=== PATIENT | male | born 1990 | race Two or more races ===

== ENCOUNTER 2016-06-24 02:11 | Emergency (ER) | payer MEDICAID ==
[~2016-06-24] VITALS: Ht 188 cm; Wt 94.8 kg
[~2016-06-24 02:11] MED LIST: ALBU18
[2016-06-24] MEDS ORDERED: LIDOCAINE 1% HCL (LOCAL ANESTH.) INJ 20ML MDV ONE (02:59)
[2016-06-24] MEDS ORDERED: HYDROmorphone HCL 2 MG/ML VL ONE (03:09)
[2016-06-24] MEDS ORDERED: ONDANSETRON HCL 4 MG/2 ML VIAL ONE (03:10)
[2016-06-24] MEDS ORDERED: TETANUS-DIPTH-ACEL PERTUSSIS 0.5ML SYRG IM ONE (03:15)
[2016-06-24] MEDS ORDERED: HYDROmorphone HCL 2 MG/ML VL IV ONE (03:15)
[2016-06-24] MEDS ORDERED: cefTRIAXone 1GM/50ML D5W 50 ML IV ONE (03:15)
[2016-06-24] MEDS ORDERED: ONDANSETRON HCL 4 MG/2 ML VIAL IV ONE (03:30)
[2016-06-24 04:04] VITALS: BP 143/56
[2016-06-24] MEDS ORDERED: BACITRACIN TOP OINT 1 UD PKG TOP ONE ×2 (04:18→04:45)
[2016-06-24] MEDS ORDERED: SODIUM CHLORIDE 0.9% 1,000 ML IV ONE (04:45)
== END 2016-06-24 04:35 | disposition home or self-care (01) ==
LOC: ER 02:13
DX: S51.812A Laceration without foreign body of left forearm, initial encounter (principal); M25.571 Pain in right ankle and joints of right foot; J45.909 Unspecified asthma, uncomplicated; F17.210 Nicotine dependence, cigarettes, uncomplicated; X99.1XXA Assault by knife, initial encounter; Y93.89 Activity, other specified; Y99.8 Other external cause status; Y92.830 Public park as the place of occurrence of the external cause
CPT/HCPCS: 12004; 73090; 73130; 73600; 90471; 90715; 96365; 96375; 99284; J0696; J1170; J2001; J2405; J7030